=== PATIENT | female | born 1970 | race Caucasian/White ===

== ENCOUNTER 2021-09-25 17:27 | Emergency (ER) | payer OTHER ==
[2021-09-25 17:37] VITALS: BP 120/67; PULSE 97; TEMP 98.4; BMI 24.2
[2021-09-25] MEDS ORDERED: METHOCARBAMOL 500 MG TABLET PO ONE (18:22)
[2021-09-25] MEDS ORDERED: KETOROLAC TROMETHAMINE 30 MG/1 ML VIAL IM ONE (18:22)
[2021-09-25 18:57] LABS: PH,URINE 5.5 (5.0-8.0); URINE APPEARANCE CLOUDY; URINE BILIRUBIN NEGATIVE (NEGATIVE); URINE COLOR YELLOW; URINE GLUCOSE (UA) NEGATIVE (NEGATIVE); URINE KETONE NEGATIVE (NEGATIVE); URINE LEUK ESTERASE NEGATIVE (NEGATIVE); URINE NITRITE NEGATIVE (NEGATIVE); URINE PROTEIN NEGATIVE (NEGATIVE); URINE UROBILINOGEN 0.2 mg/dL (0.2-1.0)
[2021-09-25] MEDS ORDERED: METHOCARBAMOL 500 MG TABLET ONE (19:02)
[2021-09-25] MEDS ORDERED: KETOROLAC TROMETHAMINE 30 MG/1 ML VIAL ONE (19:02)
== END 2021-09-25 19:26 | disposition home or self-care (01) ==
LOC: JERFT 17:27
PROC: 3E0233Z Introduction of Anti-inflammatory into Muscle, Percutaneous Approach (ICD-10-PCS; principal; 2021-09-25)
DX: M54.2 Cervicalgia (principal); M54.50 Low back pain, unspecified; V89.2XXA Person injured in unspecified motor-vehicle accident, traffic, initial encounter; Y92.9 Unspecified place or not applicable
CPT/HCPCS: 81003; 99284-25